=== PATIENT | female | born 1955 | race Caucasian/White ===

== ENCOUNTER 2019-06-03 11:48 | Outpatient (CLI) | payer OTHER ==
[2019-06-03 12:27] LABS: BASOPHILS % 0.5 % (0.0-1.5); NEUTROPHILS # 5.9 # k/uL (1.4-7.7)
[2019-06-03 13:04] LABS: eGFR (Non-African) 42
== END 2019-06-03 11:50 ==
LOC: LAB 11:48
PROVIDERS: ATTEND Family Medicine
DX: I10 Essential (primary) hypertension (principal)
CPT/HCPCS: 36415; 80053; 84443; 85025